=== PATIENT | female | born 1955 | race Caucasian/White ===

== ENCOUNTER 2021-10-12 08:30 | Outpatient (RCR) | payer MEDICARE, BC, SELFPAY ==
[2021-08-04 11:27] VITALS: BP 110/70; PULSE 72; RESP 16; O2SAT 97
[2021-08-04 12:09] VITALS: PULSE 72
== END 2021-10-12 09:48 | disposition home or self-care (01) ==
LOC: ANHCPREHAB 08:30
PROVIDERS: PCP Student in an Organized Health Care Education/Training Program; Visit Provider Internal Medicine Cardiovascular Disease
DX: Z95.1 Presence of aortocoronary bypass graft (principal)
CPT/HCPCS: 93798